=== PATIENT | male | born 1960 | race Caucasian/White ===

== ENCOUNTER 2023-08-06 16:42 | Emergency (ER) | payer BC, SELFPAY ==
[2023-08-06] VITALS (15 sets, daily range): BP systolic 143–145; BP diastolic 94–98; PULSE 73–85; TEMP 36.5; O2SAT 95–98; BMI 27.8
--- NOTE | 2023-08-06 16:45 | ECG_ITS ---
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
--- NOTE | 2023-08-06 16:59 | ED.GENADUL1 ---
HPI HPI - General Adult General Chief complaint: Chest Pain Stated complaint: HEART PALPATATIONS Time Seen by Provider: 08/06/23 16:45 Source: patient Mode of arrival: walk-in Limitations: no limitations History of Present Illness HPI narrative: Patient is a 62-year-old male who presents to the emergency department for the evaluation of palpitations. He states he has had heaviness in the left side of the chest going back of the left arm for the last 5 days. Pain has been constant. Patient describes a sensation of skipped beats associated with a heaviness. He is noted on cardiac monitoring to have occasional PVCs. He states he has had this in the past but typically the palpitations only last about an hour. He has not seen his PCP for this. He takes only Flomax daily, he quit smoking 1 year ago. He has no history of heart or lung problems. He denies any leg swelling, fevers, chills, shortness of breath, cough, congestion or hemoptysis. He states he felt lightheaded earlier today. No syncope or falls. Related Data Home Medications ?Medication ?Instructions ?Recorded ?Confirmed No Known Home Medications 08/06/23 08/06/23 Allergies Allergy/AdvReac Type Severity Reaction Status Date / Time No Known Drug Allergies Allergy Verified 08/06/23 16:47 Opioid HPI Opioid Management Most Recent Opioid Data: Last Pain Scale 2 08/06/23 16:55 Review of Systems ROS Constitutional Denies: fever or chills Ears, nose, mouth, and throat Denies: throat pain or nasal congestion Cardiovascular Reports: chest pain, palpitations and lightheadedness; Denies: edema or swelling of feet/ankles Respiratory Denies: shortness of breath, cough or coughing up blood Gastrointestinal Denies: nausea or vomiting Integumentary/Breast Denies: rash Neurological Denies: headache Hematologic/Lymphatic Denies: easy bruising or easy bleeding Exam Narrative Exam Narrative: Gen.: Awake, alert, in no distress Head: Normocephalic, atraumatic ENT: Moist mucous membranes Respiratory: No respiratory distress, lungs clear bilaterally Cardio: Regular rate and rhythm Extremities: Moves extremities equally, no injuries noted Psych: Normal mood and affect Neuro: No focal neuro deficit Skin: Warm, dry, intact; No rashes noted of the chest wall Constitutional Vital Signs, click to edit/add: Last Vital Signs Temp 97.7 F 05/12/24 16:48 Pulse 73 08/06/23 18:46 Resp 7 L 08/06/23 18:46 BP 143/98 H 08/06/23 18:46 Pulse Ox 96 08/06/23 17:40 Course Vital Signs Vital signs: Vital Signs Temperature 97.7 F 08/06/23 16:48 Pulse Rate 82 08/06/23 16:48 Respiratory Rate 20 08/06/23 16:48 Blood Pressure 145/94 H 08/06/23 16:48 Temperature 97.7 F 08/06/23 16:48 Pulse Rate 73 08/06/23 18:46 Respiratory Rate 7 L 08/06/23 18:46 Blood Pressure 143/98 H 08/06/23 18:46 Pulse Oximetry 96 08/06/23 17:40 Medical Decision Making MDM Narrative Medical decision making narrative: Patient treated with fluids in the ER, vital signs are stable. No EKG changes noted. Laboratory studies reviewed and noted within normal limits although D-dimer was elevated and the patient was sent for CT angio of the chest which is unremarkable. He will be referred to cardiology for evaluation of the PVCs. Return to the ER if symptoms change or worsen. Patient was reevaluated by attending physician prior to discharge. Medical Records Medical records reviewed: Yes I reviewed the patient's medical records Lab Data Lab results reviewed: Yes I reviewed the patient's lab results Labs: Lab Results 08/06/23 Range/Units 16:50 WBC 9.7 (4.0-11.0) 10^3/uL RBC 4.67 L (4.70-6.10) 10^6/uL Hgb 15.4 (14.0-18.0) g/dL Hct 42.5 (42.0-54.0) % MCV 91.0 (80.0-94.0) fL MCH 33.0 (25.9-34.0) pg MCHC 36.2 H (29.9-35.2) g/dL RDW 12.0 (11.0-15.0) % Plt Count 220 (150-450) 10^3/uL MPV 10.0 (9.5-13.5) fL Neut % (Auto) 75.5 H (43.0-75.0) % Lymph % (Auto) 18.5 L (20.5-60.0) % Kimble % (Auto) 5.0 (1.7-12.0) % Eos % (Auto) 0.3 L (0.9-7.0) % Baso % (Auto) 0.4 (0.2-2.0) % Neut # (Auto) 7.3 H (1.4-6.5) 10^3/uL Lymph # (Auto) 1.8 (1.2-3.8) 10^3/uL Kimble # (Auto) 0.5 (0.3-0.8) 10^3/uL Eos # (Auto) 0.0 (0.0-0.7) 10^3/uL Baso # (Auto) 0.0 (0.0-0.1) 10^3/uL Abs Immat Gran (auto) 0.03 (0.00-0.03) 10^3/uL Imm/Tot Granulo (auto) 0.3 (0.0-0.5) % PT 11.0 (9.0-11.6) sec INR 1.04 D-Dimer 0.71 H* (<=0.59) mg/L FEU Sodium 140 (136-145) mmol/L Potassium 4.2 (3.5-5.1) mmol/L Chloride 103 (98-107) mmol/L Carbon Dioxide 29.0 (21.0-32.0) mmol/L Anion Gap 12.2 BUN 15.0 (7.0-18.0) mg/dL Creatinine 0.89 (0.70-1.30) mg/dL Est GFR ( Amer) >60 (>=60) Est GFR (Non-Af Amer) >60 (>=60) BUN/Creatinine Ratio 16.9 Glucose 98 (74-106) mg/dL Calcium 9.3 (8.5-10.1) mg/dL Magnesium 2.2 (1.8-2.4) mg/dL Total Bilirubin 1.0 (0.2-1.0) mg/dL AST 37 (15-37) U/L ALT 51 (16-63) U/L Alkaline Phosphatase 71 (46-116) U/L Troponin I High Sens 4.4 (4.0-76.1) pg/mL NT-Pro-B Natriuret Pep 113.0 (<=900.0) pg/mL Total Protein 7.6 (6.4-8.2) g/dL Albumin 4.3 (3.4-5.0) g/dL Globulin 3.3 g/dL Albumin/Globulin Ratio 1.3 TSH 0.594 (0.358-3.740) uIU/mL Imaging Data CT scan - chest: Attestation: I have reviewed the pertinent imaging results. Radiologist's impression: ITS Impressions Chest CTA 08/06/23 17:33 IMPRESSION: No central pulmonary thromboembolic disease Electronically authenticated by: FUAD BOLDEN Date: 08/06/2023 18:55 ECG Data Attestation: I personally reviewed and interpreted this ECG as follows: (Normal sinus rhythm at a rate of 79 with left anterior fascicular block, no acute ST elevation or ectopy noted.EKG reviewed by attending physician) Discharge Plan Discharge Stand Alone Forms: Portal Instructions Chief Complaint: Chest Pain Clinical Impression: Palpitations Patient Disposition: Home, Self-Care Time of Disposition Decision: 19:15 Condition: Good Prescriptions / Home Meds: No Action No Known Home Medications Print Language: Guatemalan Instructions: Heart Palpitations (ED), Premature Ventricular Contractions (ED) Referrals: TERESA ABRAMS [Physician] - 1 week SHAUN GONZALEZ [Primary Care Provider] - 1 week
[2023-08-06 17:07] LABS: Basophils Percent Auto 0.4 % (0.2-2.0); Eosinophils Percent Auto 0.3 % (0.9-7.0); Hematocrit 42.5 % (42.0-54.0); Hemoglobin 15.4 g/dL (14.0-18.0); Immature Granulocytes Abs Auto 0.03 10^3/uL (0.00-0.03); Immature Granulocytes Pct Auto 0.3 % (0.0-0.5); Lymphocytes Absolute Auto 1.8 10^3/uL (1.2-3.8); Lymphocytes Percent Auto 18.5 % (20.5-60.0); Mean Corpuscular HGB Conc 36.2 g/dL (29.9-35.2); Monocytes Absolute Auto 0.5 10^3/uL (0.3-0.8); Neutrophils Absolute Auto 7.3 10^3/uL (1.4-6.5); Neutrophils Percent Auto 75.5 % (43.0-75.0); Platelet Count 220 10^3/uL (150-450); Red Blood Count 4.67 10^6/uL (4.70-6.10); White Blood Count 9.7 10^3/uL (4.0-11.0)
[2023-08-06] MEDS: 0.9 % SODIUM CHLORIDE 1,000 ML 999 ML IV (17:08)
[2023-08-06 17:22] LABS: INR 1.04
[2023-08-06 17:24] LABS: Anion Gap 12.2
[2023-08-06 17:30] LABS: Alanine Aminotransferase 51 U/L (16-63); Albumin Globulin Ratio 1.3; Albumin Level 4.3 g/dL (3.4-5.0); Alkaline Phosphatase 71 U/L (46-116); Aspartate Amino Transferase 37 U/L (15-37); BUN Creatinine Ratio 16.9; Calcium 9.3 mg/dL (8.5-10.1); Chloride 103 mmol/L (98-107); Estimated GFR (African America >60 (>=60); Estimated GFR (Non-African Ame >60 (>=60); Globulin 3.3 g/dL; Glucose 98 mg/dL (74-106); Magnesium 2.2 mg/dL (1.8-2.4); Potassium 4.2 mmol/L (3.5-5.1); Sodium 140 mmol/L (136-145); Thyroid Stimulating Hormone 0.594 uIU/mL (0.358-3.740); Total Protein 7.6 g/dL (6.4-8.2); Troponin I High Sensitivity 4.4 pg/mL (4.0-76.1)
[2023-08-06 17:33] LABS: D Dimer 0.71 mg/L FEU (<=0.59)
--- NOTE | 2023-08-06 17:33 | CT_ITS ---
[address] [address] Patient Name: NATALY BARRON MRN: [id number] date: 1960 Sex: M Assigned Patient Location: ER Current Patient Location: ED.[facility] Accession/Order Number: [id number] Exam Date: 08/06/2023 17:50 Report Date: 08/06/2023 18:55 At the request of: GENARO PATEL Procedure: CT angio chest EXAMINATION: CT angio chest HISTORY: PE COMPARISON: No relevant comparison available. TECHNIQUE: Multi-planar CT images were created with IV contrast. Axial, Coronal, and Sagittal images. Dose reduction techniques were achieved by using automated exposure control and/or adjustment of mA and/or kV according to patient size and/or use of iterative reconstruction technique. FINDINGS: LUNGS: No visible pulmonary disease. PLEURA: No mass, effusion, or pneumothorax. VASCULATURE: Normal postcontrast opacification with no filling defects to suggest a central pulmonary embolus AMAYA: No mass or adenopathy. MEDIASTINUM: No mass or adenopathy. CARDIAC: No enlargement, pericardial thickening, or significant calcification. AORTA: No aneurysm or dissection. CHEST WALL: No mass or axillary adenopathy. BONES: No bone lesion or fracture. LIMITED ABDOMEN: No suspicious findings. Limited images of the upper abdomen. OTHER: Negative. CT/CT angio chest IMPRESSION: No central pulmonary thromboembolic disease Electronically authenticated by: FUAD BOLDEN Date: 08/06/2023 18:55
== END 2023-08-06 19:25 | disposition home or self-care (01) ==
PROVIDERS: Physician Assistant; Emergency Provider Emergency Medicine; PCP Family Medicine
DX: R00.2 Palpitations (principal); Z87.891 Personal history of nicotine dependence; R42 Dizziness and giddiness; R07.9 Chest pain, unspecified
CPT/HCPCS: 36415; 71275; 80053; 83735; 83880; 84443; 84484; 85025; 85378; 85610; 93005; 99285; Q9967